=== PATIENT | male | born 1965 | race Caucasian/White ===

== ENCOUNTER 2016-11-13 17:41 | Emergency (ER) | payer OTHER ==
[~2016-11-13] VITALS: Ht 167.6 cm; Wt 78.1 kg
[2016-11-13] MEDS ORDERED: ZANTAC150 MG PO (20:11)
[2016-11-13] MEDS ORDERED: ULTRACET1 TABLET PO (20:25)
[2016-11-13 20:30] VITALS: BP 124/84
== END 2016-11-13 20:31 | disposition home or self-care (01) ==
LOC: RME 17:41 → EME 17:41 → RME 20:31
DX: R10.12 Left upper quadrant pain (principal)
CPT/HCPCS: 74176; 99281; 99284

== ENCOUNTER → 2017-03-28 | Outpatient (CLI) | payer OTHER ==
[~2017-03-28] VITALS: Ht 167.6 cm; Wt 74.8 kg
[~2017-03-28] MED LIST: FLONASE16 G1 BOTH NARES; MOTRIN600 MG PO; SINGULAIR10 MG PO; SYMBICORT60 INHALAT IH; TRAZODONE HCL50 MG PO; ULTRACET1 TABLET PO; VENTOLIN HFA18 GM IH; ZANTAC150 MG PO; ZYRTEC10 M3 PO
== END | disposition home or self-care (01) ==
LOC: AMB 11:28
DX: Z12.11 Encounter for screening for malignant neoplasm of colon (principal); D12.3 Benign neoplasm of transverse colon; K63.5 Polyp of colon; K57.30 Diverticulosis of large intestine without perforation or abscess without bleeding; K64.8 Other hemorrhoids; J45.909 Unspecified asthma, uncomplicated
CPT/HCPCS: 88305